=== PATIENT | female | born 1955 | race Caucasian/White ===

== ENCOUNTER → 2018-09-18 14:36 | Outpatient (CLI) | payer MEDICARE, OTHER ==
[2015-02-10 10:28] VITALS: BMI 32.1
[~2018-09-18 14:36] MED LIST: AMBIEN10 MG PO; ATIVAN1 MG PO; NEURONTIN 300300 MG PO; NORCO 7.5/325 T1 TA1 PO; SINGULAIR10 MG PO; WELLBUTRIN SR150 MG PO
== END | disposition home or self-care (01) ==
LOC: D.MRI 14:30
DX: M75.101 Unspecified rotator cuff tear or rupture of right shoulder, not specified as traumatic (principal)

== ENCOUNTER 2019-07-27 07:45 | Day surgery (SDC) | payer OTHER, MEDICARE ==
[2019-07-24 10:22] LABS: ANION GAP 9.9 mmol/L (8-16); CALCIUM 8.9 mg/dL (8.5-10.1); CARBON DIOXIDE 30.9 mmol/L (21.0-32.0); CREATININE - SERUM 0.9 mg/dL (0.6-1.3); POTASSIUM - SERUM 3.8 mmol/L (3.5-5.1)
[2019-07-24 10:25] LABS: HEMATOCRIT 40.7 % (36.0-48.0); HEMOGLOBIN 13.2 g/dL (12-16); MCH 28.8 pg (26.0-34.0); MCHC 32.4 g/dL (31.0-37.0); MCV 88.9 fL (80.0-100.0); RBC 4.58 10x6/uL (4.00-5.40); RDW 13.8 % (11.5-14.5); WBC 6.7 10x3/uL (4.8-10.8)
[~2019-07-27] VITALS: Ht 157.5 cm; Wt 87.1 kg
[~2019-07-27 07:45] MED LIST changes: +ALBUTEROL SULF8.5 GM INH; +CYMBALTA20 MG PO; +GLUCOPHAGE500 MG PO; +HYDROCODON-ACE1 EA10 PO; +KENALOG 0.1 % 115 GM TOPICAL; +MYCOSTATIN 15 G15 GM TOPICAL
[2019-07-27 08:02] VITALS: BP 152/68; Ht 157.5 cm; Wt 87.1 kg
[2019-07-27] MEDS ORDERED: HYDROCODON-ACE1 EA10 PO (10:27)
--- NOTE | 2019-07-27 10:48 | NUR ---
MEETS ANESTHESIA DISCHARGE CRITERIA
--- NOTE | 2019-07-27 11:45 | NUR ---
PT DC INSTRUCTIONS REVIEWED AT THIS TIME, PT VERBALIZES UNDERSTANDING AND AGREES. PT IV REMOVED AT THIS TIME, INTACT, NO REDNESS OR SWELLING NOTED AT THIS TIME.
--- NOTE | 2019-07-27 12:15 | NUR ---
PT LEAVING OPS SURGERY AT THIS TIME VIA WC. NAD NOTED.
--- NOTE | 2019-07-27 12:21 | OP ---
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 POSTOPERATIVE DIAGNOSES: Recurrent impingement with acromioclavicular arthropathy. PROCEDURE: 1. Arthroscopic distal clavicle excision done through separate incision -- 1 cm. 2. Arthroscopic subacromial decompression with acromioplasty and bursectomy. SURGEON: Elida Milian MD ANESTHESIA: General. INTRAOPERATIVE COMPLICATIONS: None. SUMMARY OF PATHOLOGIC FINDINGS: Since the patient's MRI nearly 11 months ago, the patient has since ruptured her biceps tendon and now has residual intraarticular biceps tendon that was removed. The patient had a residual impingement as well as some continued acromioclavicular arthropathy versus regrowth. OPERATIVE SUMMARY IN DETAIL: After obtaining the appropriate preoperative orthopedic surgery consent as well as anesthetic consultation, evaluation and clearance, the patient was brought to the operating room and placed on the operating table in supine position. After adequate general laryngeal mask airway was administered, the patient was placed in the right lateral decubitus position. All pressure points were well padded to include down leg peroneal pad as well as axillary roll. She was held firmly to the operating table using the vacuum pack suction system. Right upper extremity and shoulder were then prepped and draped in routine sterile fashion. The arm was held in the Arthrex traction boom at 30 degrees of forward flexion, 30 degrees of abduction, and 10 pounds of traction laterally. Arthroscopy was established in the glenohumeral joint from the posterior portal. Anterior portal was established in the anterior safe interval. Diagnostic arthroscopy did reveal the patient's residual biceps tendon stump. This was gently taken down with a resector. Attention was then turned to the subacromial space. While in the subacromial space, Brainard tissue ablation system was utilized to denude the undersurface of the acromion and continue release of the residual acromioclavicular ligament. A 5-0 barrel bur was then used to perform acromioplasty at the level of acromioclavicular joint through a separate arthroscopic portal anteriorly. Then, 1 cm distal clavicle was taken down along with what appeared to be residual bone fragments and scar tissue. Having completed this, the residual bursa was taken down. Having completed that, arthroscopy portals were closed in routine interrupted fashion using 4-0 Prolene. Sterile dressings were applied. The patient was awakened and taken to recovery room in stable condition. All final needle and sponge counts were correct. TRANSINT:[id number] Voice Confirmation ID: [id number] DOCUMENT ID: [id number] OPERATIVE REPORT [id number] ZAYDA PALOMINO MD, ELIDA NEIL at 1221 CC: [id number] DICTATION DATE: 07/27/19 103 EFFICIENCY MINER: 07/27/19 1153 REG [facility] [address] [place] [address]
== END 2019-07-27 12:15 | disposition home or self-care (01) ==
LOC: D.OPS 07:45 → D.PAN 09:15 → D.OPS 09:15 → D.PAN 09:45 → D.OPS 12:15
PROVIDERS: Anesthesiology; ATTEND Orthopaedic Surgery
DX: M25.811 Other specified joint disorders, right shoulder (principal); M75.21 Bicipital tendinitis, right shoulder